=== PATIENT | female | born 1950 | race Caucasian/White ===

== ENCOUNTER 2024-07-24 05:18 | Observation (INO) | payer MEDICARE, SELFPAY ==
[2024-07-24] VITALS (10 sets, daily range): BP systolic 134–164; BP diastolic 56–104; PULSE 54–63; RESP 15–20; TEMP 36.4–36.9; O2SAT 91–96; BMI 33.8; BMI 35.4; BMI 36.1
--- NOTE | 2024-07-24 05:30 | CT_ITS ---
PROCEDURE INFORMATION: Exam: CTA Head With Contrast, Arteriography Exam date and time: 07/24/2024 5:55 AM Age: 73 years old Clinical indication: Dizziness and giddiness; Additional info: Dizziness, emesis TECHNIQUE: Imaging protocol: Computed tomographic angiography of the head with contrast. Exam focused on the arteries. 3D rendering (Not supervised by radiologist): MIP and/or 3D reconstructed images were created by the technologist. Radiation optimization: All CT scans at this facility use at least one of these dose optimization techniques: automated exposure control; mA and/or kV adjustment per patient size (includes targeted exams where dose is matched to clinical indication); or iterative reconstruction. Contrast material: ISOUVE 370; Contrast volume: 80 ml; Contrast route: INTRAVENOUS (IV); COMPARISON: CT HEAD/BRAIN WO CON 07/24/2024 5:42 AM FINDINGS: ANTERIOR CIRCULATION: Right internal carotid artery: Intracranial segment is patent with no significant stenosis. No aneurysm. Right middle cerebral artery: No occlusion or significant stenosis. No aneurysm. Right anterior cerebral artery: No occlusion or significant stenosis. No aneurysm. Left internal carotid artery: Intracranial segment is patent with no significant stenosis. No aneurysm. Left middle cerebral artery: No occlusion or significant stenosis. No aneurysm. Left anterior cerebral artery: No occlusion or significant stenosis. No aneurysm. POSTERIOR CIRCULATION: Right vertebral artery: No occlusion or significant stenosis. No aneurysm. Left vertebral artery: No occlusion or significant stenosis. No aneurysm. Basilar artery: No occlusion or significant stenosis. No aneurysm. Right posterior cerebral artery: Anatomic variant right persistent circulation with hypoplastic right posterior cerebral artery P1 segment and right posterior cerebral artery filling via the anterior circulation. No occlusion or significant stenosis. No aneurysm. Left posterior cerebral artery: No occlusion or significant stenosis. No aneurysm. Brain: Brain and intracranial findings as previously described. Cerebral ventricles: No acute findings. No hydrocephalus. Bones/joints: No acute osseous abnormality. No acute fracture. Soft tissues: No significant soft tissue abnormalities. IMPRESSION: No evidence of significant intracranial vascular disease or acute large vessel occlusion at this time.
--- NOTE | 2024-07-24 05:30 | CT_ITS ---
PROCEDURE INFORMATION: Exam: CTA Neck With Contrast Exam date and time: 07/24/2024 5:55 AM Age: 73 years old Clinical indication: Dizziness and giddiness; Additional info: Dizziness, emesis TECHNIQUE: Imaging protocol: Computed tomographic angiography of the neck with contrast. Exam focused on the cervical segments of the vasculature. 3D rendering (Not supervised by radiologist): MIP and/or 3D reconstructed images were created by the technologist. Radiation optimization: All CT scans at this facility use at least one of these dose optimization techniques: automated exposure control; mA and/or kV adjustment per patient size (includes targeted exams where dose is matched to clinical indication); or iterative reconstruction. Contrast material: ISOUVE 370; Contrast volume: 80 ml; Contrast route: INTRAVENOUS (IV); COMPARISON: CT HEAD/BRAIN WO CON 07/24/2024 5:42 AM FINDINGS: Right common carotid artery: Patent enhancing right common carotid artery. No significant stenosis. No dissection or occlusion. Right internal carotid artery: No acute abnormality. Extracranial segment is patent without stenosis with respect to the distal ICA lumen. No dissection or occlusion. Right external carotid artery: Patent enhancing right external carotid artery. No occlusion or significant stenosis. Left common carotid artery: Patent enhancing left common carotid artery. No significant stenosis. No dissection or occlusion. Left internal carotid artery: No acute abnormality. Extracranial segment is patent without stenosis with respect to the distal ICA lumen. No dissection or occlusion. Left external carotid artery: Patent enhancing left external carotid artery. No occlusion or significant stenosis. Right vertebral artery: Patent enhancing right vertebral artery. No significant stenosis. No dissection or occlusion. Left vertebral artery: Patent enhancing left vertebral artery. No significant stenosis. No dissection or occlusion. Aorta: Ectatic visualized ascending thoracic aorta and aortic arch. Two vessel aortic arch. Patent enhancing great vessels. Pulmonary arteries: Prominent pulmonary trunk and visualized central pulmonary arteries suggestive of pulmonary artery hypertension. Soft tissues: No significant soft tissue abnormalities. Bones/joints: No acute osseous abnormality. No acute fracture. IMPRESSION: 1. No evidence of significant carotid or vertebral arterial vascular disease at this time. 2. Prominent pulmonary trunk and visualized central pulmonary arteries suggestive of pulmonary artery hypertension. REFERENCES: NASCET CRITERIA. The degree of stenosis in the cervical segment of the internal carotid artery is based on NASCET criteria. Normal is no stenosis. Mild is less than 50% stenosis. Moderate is 50-69% stenosis. Severe is 70% to 99% stenosis. Total occlusion is no detectable patent lumen.
--- NOTE | 2024-07-24 05:30 | CT_ITS ---
PROCEDURE INFORMATION: Exam: CT Head Without Contrast Exam date and time: 07/24/2024 5:42 AM Age: 73 years old Clinical indication: Dizziness; Additional info: Dizziness, emesis TECHNIQUE: Imaging protocol: Computed tomography of the head without contrast. Radiation optimization: All CT scans at this facility use at least one of these dose optimization techniques: automated exposure control; mA and/or kV adjustment per patient size (includes targeted exams where dose is matched to clinical indication); or iterative reconstruction. COMPARISON: No relevant prior studies available. FINDINGS: Brain: Mild prominence of the sulci consistent with diffuse atrophy. Mild periventricular and subcortical white matter low-attenuation consistent with chronic small vessel ischemic changes. Approximately 1.2 x 1.0 x 1.5 cm posterolateral left parietal convexity calcified extra-axial lesion consistent with small meningioma. No significant edema, mass effect or midline shift. No acute hemorrhage. Cerebral ventricles: Ventricular prominence proportional to sulci. Paranasal sinuses: Mild bilateral maxillary sinus mucosal thickening. Mastoid air cells: Opacified bilateral mastoid air cells. Bones: No acute osseous abnormality. No acute fracture. Soft tissues: No significant soft tissue abnormalities. IMPRESSION: 1. Mild diffuse atrophy and chronic/remote ischemic changes without evidence of superimposed acute infarct, hemorrhage or significant mass-effect. 2. Approximately 1.2 x 1.0 x 1.5 cm posterolateral left parietal convexity calcified extra-axial lesion consistent with small meningioma. 3. Mild bilateral maxillary sinus disease and bilateral mastoid effusions versus mastoiditis.
--- NOTE | 2024-07-24 05:31 | XR_ITS ---
PROCEDURE INFORMATION: Exam: XR Chest Exam date and time: 07/24/2024 6:01 AM Age: 73 years old Clinical indication: Other: Dizziness TECHNIQUE: Imaging protocol: Radiologic exam of the chest. Views: Portable AP chest x-ray, 1 view. COMPARISON: CT ANGIO NECK 07/24/2024 5:55 AM FINDINGS: Lungs: Low lung volumes with mild bibasilar atelectasis. Pleural spaces: No significant costophrenic angle blunting. No pneumothorax. Heart/Mediastinum: Heart size appears prominent however may be exaggerated by the portable AP technique. Diaphragm: Right hemidiaphragm elevation. Bones/joints: No acute osseous abnormality. Soft tissues: Large body habitus. IMPRESSION: Low lung volumes with mild bibasilar atelectasis.
[2024-07-24 05:35] LABS: Basophils % 0.4 % (0.1-2.0); Eosinophils # 0.2 K/mm3 (0.0-0.4); Eosinophils % 2.7 % (0.1-12.0); Hematocrit 39.3 % (37.0-47.0); Hemoglobin 12.7 g/dL (12.2-16.2); Lymphocytes # 1.7 K/mm3 (0.7-4.5); Lymphocytes % 21.3 % (10-50); Mean Corpuscular HGB Conc 32.3 g/dL (31.8-35.4); Mean Corpuscular Hemoglobin 29.6 pg (27.0-31.2); Mean Corpuscular Volume 91.6 fl (81-99); Mean Platelet Volume 10.5 fl (7.4-10.4); Monocytes # 0.4 K/mm3 (0.1-1.0); Monocytes % 5.6 % (1.7-9.3); Neutrophils # 5.4 K/mm3 (1.8-7.8); Neutrophils % 69.6 % (37.0-80.0); Platelet Count 269 K/mm3 (142-424); Red Blood Count 4.29 M/mm3 (4.20-5.40); Red Cell Distribution Width 13.4 % (11.5-17.5); White Blood Count 7.8 K/mm3 (4.8-10.8)
[2024-07-24] MEDS: LORazepam 2MG/ML VIAL 1 MG IV (05:38)
[2024-07-24 05:39] LABS: Albumin Level 4.1 g/dl (3.5-5.0); Chloride 108 mmol/L (98-107); Potassium 3.6 mmoL/L (3.5-5.1); Sodium 138 mmol/L (136-145)
[2024-07-24] MEDS: MECLIZINE 25MG TABLET 25 MG PO ×2 (05:39→20:59)
--- NOTE | 2024-07-24 05:39 | ECG_ITS ---
APPROVED REPORT Exam: Resting ECG HR:53 bpm ECG Measurements Heart Rate 53 AXES UT 189 P 67 QRSd 105 QRS -11 QT 433 T 108 QTc 415 Conclusion SINUS BRADYCARDIA NONSPECIFIC ST & T-WAVE ABNORMALITY ABNORMAL ECG No STEMI Electronically signed by : LEONELA JHAVERI, 07/25/2024 03:45:45
[2024-07-24 05:42] LABS: Alanine Aminotransferase 27 U/L (12-78); Alkaline Phosphatase 62 U/L (38-126); Anion Gap 8.6 mEq/L (5-15); Aspartate Amino Transferase 29 U/L (14-36); Bilirubin,Total 0.5 mg/dl (0.2-1.3); Blood Urea Nitrogen 30 mg/dl (7-17); Calcium 9.4 mg/dl (8.4-10.2); Carbon Dioxide 25 mmol/L (22.0-30.0); Creatinine Clearance Estimated 59 mL/min (50-200); Estimated Glomerular Filt Rate 44 ml/min (>60); GFR (African American) 54 ML/MIN (>60); Glucose 192 mg/dl (74-100); Total Protein,Serum 6.7 g/dl (6.3-8.2)
[2024-07-24 05:44] LABS: INR 0.98 (0.9-1.1)
--- NOTE | 2024-07-24 05:54 | HMH.EDGENADL ---
Discharge Plan Disposition Patient Disposition: Admitted Condition: Fair Clinical Impressions Clinical Impression: Dizziness, Nausea & vomiting, Vertigo Discharge ED Provider: Kirt Lowe General Adult HPI <Kirt Lowe MD - Last Filed: 07/24/24 06:53> General Chief complaint: Dizziness Stated complaint: Vertigo Time Seen by Provider: 07/24/24 05:27 Mode of Arrival: EMS Source of Information: Patient and EMS Description of Symptoms (Recalled from ER Triage Doc. by RN): Patient reports dizziness x1 week. States it is worse tonight. States room is spinning. Worse when turning head to the right. History of Present Illness HPI narrative: 73-year-old female who reports a self diagnosis of previous vertigo presents to the ER with dizziness and room spinning. He states it has been going on for the last week but was worse tonight. She states the room feels like it is spinning. She is having difficulty sleeping because anytime she moves she feels extremely dizzy and nauseous. She has also had emesis. She reports to dizziness is worse when she turns her head to the right. She denies any cardiac history or history of stroke but states she is a diabetic on insulin. She reports no headache, numbness, tingling, weakness, chest pain, difficulty breathing, or other associated symptoms. No recent illness. She does not have any medications for vertigo and has never had it this bad before. She did not take any medications at home prior to arrival. Tonight her symptoms got bad enough that she called EMS. EMS reports they gave Zofran and route and that patient had blood glucose of 199, mild bradycardia with heart rate in the mid to upper 50s, reassuring blood pressures. Related Data Allergies Allergy/AdvReac Type Severity Reaction Status Date / Time No Known Allergies Allergy Verified 07/24/24 05:34 PFSH <Kirt Lowe MD - Last Filed: 07/24/24 06:53> [facility] Disclaimer: The information contained in this section may have been updated after the patient was seen, as this information can be updated by other users. Social History (Updated 07/24/24 @ 06:53 by Kirt Lowe MD) Smoking Status: Never smoker alcohol intake: never current occupational status: other Travel in the last 8 weeks: None Have you lived/traveled outside [place] in past 30 days?: No Contact w/someone who lives/traveled outside [place] past 30 days?: No Exposure to someone with infectious disease in past 14 days?: No Do you have a fever (greater than 100.4 F or 38 C)?: No Have you tested positive for COVID-19: No Exposed to someone with COVID-19 in past 14 days?: No Do you have a sore throat?: No Do you have a cough?: No Do you have any weakness?: No Do you have any diarrhea?: No Are you experiencing any unusual bleeding?: No Do you have any muscle aches/pain?: No Do you have any abdominal pain?: No Are you experiencing loss of taste or smell?: No <Kirt Lowe MD - Last Filed: 07/24/24 06:53> ROS Obtained: Yes Systems reviewed as appropriate & no additional complaints except as documented Per HPI Physical Exam <Kirt Lowe MD - Last Filed: 07/24/24 06:53> General General appearance: alert and in no apparent distress Head Head exam: atraumatic and normocephalic Eye Eye exam: Present PERRL and EOMI; Absent nystagmus ENT ENT exam: Present mucous membranes moist Neck Neck exam: Present normal inspection and full ROM; Absent tenderness Chest Chest inspection: Present symmetric chest wall rise Respiratory Respiratory exam: Present normal lung sounds bilaterally; Absent respiratory distress, wheezes or stridor Cardiovascular Cardiovascular exam: Present normal rhythm and bradycardia (Heart rate in the mid upper 50s) Abdominal Exam Abdominal exam: Present soft; Absent distention or tenderness Extremities Exam Extremities exam: Present full ROM; Absent edema, joint swelling or calf tenderness Neurological Exam Neurological exam: Present alert, oriented X3, CN II-XII intact and other (NIH 0; patient once had extremely still not wanting to move it for fear of symptoms); Absent motor sensory deficit Psychiatric Psychiatric exam: Present normal affect and normal mood Skin Skin exam: Present warm and dry Medical Decision Making <Kirt Lowe MD - Last Filed: 07/24/24 06:53> Medical Records Screening: Per USPSTF and CDC recommendations, given the prevalence of disease in our region, it is our hospital?s policy to screen for HIV and viral Hepatitis for all patients aged 18 and over and those with ongoing risk factors. Rivas Inquiry Pt receiving controlled substance: No Vital Signs: 07/24/24 05:19 07/24/24 05:30 07/24/24 06:09 Temperature 97.6 F Temperature Source Oral Pulse Rate 58 L 58 L Pulse Rate [Right Radial] 57 L Respiratory Rate 16 Blood Pressure 149/70 H 139/104 H Blood Pressure [Right Arm] 164/82 H Blood Pressure Mean [Right Arm] 109 Blood Pressure Source [Right Arm] Automatic Cuff Blood Pressure Position [Right Arm] Supine 02 Sat by Pulse Oximetry 91 L 93 L 96 Oxygen Delivery Method Room Air 07/24/24 07:00 07/24/24 07:31 Temperature Temperature Source Pulse Rate 58 L 60 Pulse Rate [Right Radial] Respiratory Rate Blood Pressure 134/72 142/80 H Blood Pressure [Right Arm] Blood Pressure Mean [Right Arm] Blood Pressure Source [Right Arm] Blood Pressure Position [Right Arm] 02 Sat by Pulse Oximetry 96 94 L Oxygen Delivery Method Room Air Room Air Lab Data Lab Results 07/24/24 05:21: WBC 7.8, RBC 4.29, Hgb 12.7, Hct 39.3, MCV 91.6, MCH 29.6, MCHC 32.3, RDW 13.4, Plt Count 269, MPV 10.5 H, Neut % (Auto) 69.6, Lymph % (Auto) 21.3, [place] % (Auto) 5.6, Eos % (Auto) 2.7, Baso % (Auto) 0.4, Neut # (Auto) 5.4, Lymph # (Auto) 1.7, [place] # (Auto) 0.4, Eos # (Auto) 0.2, Baso # (Auto) 0.0, PT 11.0, INR 0.98, Sodium 138, Potassium 3.6, Chloride 108 H, Carbon Dioxide 25, Anion Gap 8.6, BUN 30 H, Creatinine 1.20 H, Estimated Creat Clear 59, Estimated GFR 44 L, Est GFR ( Amer) 54 L, Glucose 192 H, Calcium 9.4, Total Bilirubin 0.5, AST 29, ALT 27, Alkaline Phosphatase 62, Troponin I < 0.01, Total Protein 6.7, Albumin 4.1, Globulin 2.6, Albumin/Globulin Ratio 1.6 07/24/24 05:31: VBG pH 7.30 L, VBG pCO2 46.1, VBG pO2 43.4 H, VBG HCO3 22.3 L, VBG Total CO2 23.7, VBG O2 Saturation 74.2 H, VBG Base Excess -4.0 L, VBG Lactic Acid 2.0 07/24/24 05:21 07/24/24 05:21 Orders (Tests/Meds): ED MEDICATIONS Generic Name Dose Route Start Last Admin Trade Name Freq PRN Reason Stop Dose Admin Sodium Chloride 10 ml 07/24/24 05:27 Sodium Chloride 0.9% 10ml Vial IV 08/23/24 05:26 NEEDED PRN to Dilute Lorazepam inj Sodium Chloride 10 ml 07/24/24 06:06 07/24/24 06:07 Sodium Chloride 0.9% 10ml Syr (Rad Only) IV 08/23/24 06:05 10 ml NEEDED PRN Administration Maintain IV Site Discontinued Medications Generic Name Dose Route Start Last Admin Trade Name Freq PRN Reason Stop Dose Admin Lactated Ringer's 1,000 mls @ 999 mls/hr 07/24/24 06:00 07/24/24 06:06 Lactated Ringer's 1000 Ml Bag IV 07/24/24 07:00 999 mls/hr .Q1H1M ONE Administration Iopamidol 80 ml 07/24/24 06:06 07/24/24 06:07 Iopamidol-370 (76%);100ml Bottle IV 07/24/24 06:07 80 ml ONCE ONE Administration Lorazepam 1 mg 07/24/24 05:27 07/24/24 05:38 Lorazepam 2mg/Ml Vial IV 07/24/24 05:28 1 mg ONCE ONE Administration Meclizine HCl 25 mg 07/24/24 05:27 07/24/24 05:39 Meclizine 25mg Tablet PO 07/24/24 05:28 25 mg ONCE ONE Administration Sodium Chloride 40 ml 07/24/24 06:06 07/24/24 06:07 0.9 % Sodium Chloride 50 Ml Vial IV 07/24/24 06:07 40 ml ONCE ONE Administration ORDERS Category Date Time Status CT angio head Stat Cat Scan 07/24/24 05:[address] angio neck Stat Cat Scan 07/24/24 05:[address] head/brain wo con Stat Cat Scan 07/24/24 05:30 Completed CXR --portable [XR chest portable] Stat Exams 07/24/24 05:31 Completed CBC w/Auto Diff [Complete Blood Count Auto Diff] Stat Lab 07/24/24 05:21 Completed CMP [Comprehensive Metabolic Panel] Stat Lab 07/24/24 05:21 Completed PT INR [Prothrombin Time INR] Stat Lab 07/24/24 05:21 Completed Trop I [Troponin I] Stat Lab 07/24/24 05:21 Completed Troponin I Q3H Lab 07/24/24 08:30 Ordered Troponin I Q3H Lab 07/24/24 11:30 Ordered Urinalysis and Microscopic Stat Lab 07/24/24 07:59 Ordered VBG [Venous Blood Gas] Stat RT 07/24/24 05:31 Completed ECG Request Stat Y 07/24/24 05:27 Ordered Medical Decision Narrative: In summary, this 73-year-old female with diabetes on insulin which may not be at goal therapy presents to the emergency department today with dizziness, vomiting. On initial evaluation patient is mildly bradycardic but otherwise hemodynamically stable, afebrile, GCS 15, no localizing neurologic deficits, NIH 0, patient has dizziness with movement and nausea, though she reports her nausea is improved since receiving Zofran from EMS. Normal [id number] and [id number], overall very reassuring neurologic exam with no nystagmus. Differential diagnosis includes but is not limited to BPPV, posterior stroke, intracranial mass or lesion, also considered electrolyte abnormality, dehydration, arrhythmia, among others. Based on these concerns, I ordered serum labs, cardiac workup, CT imaging. Patient was not made a stroke alert because her symptoms have been ongoing for the last week and are just an exacerbation tonight. ECG personally interpreted demonstrates sinus bradycardia, rate 53, normal axis, normal ME and QTc, no STEMI. Patient received meclizine, low-dose Ativan for treatment. Labs personally reviewed demonstrate nonactionable CBC no leukocytosis or anemia, normal platelets, PT/INR normal, CMP with evidence of kidney dysfunction, unclear if this is new or old, patient has been started on IV fluids. Initial troponin undetectably low less than 0.01 reassuring in the setting of reassuring ECG and no chest pain or shortness of breath. CT head personally interpreted does not demonstrate intracranial bleed, there is what appears to be a calcified meningioma in the left parietal region. Radiology read pending. CT angiography is pending. Patient reports symptoms are not yet significantly improved, but she is able to move her head more without as much dizziness. CT angiography does not demonstrate acute vascular lesion. See radiology read for full interpretation. Patient handed off to Dr. Gabriel in stable condition for further management and disposition. Anticipate patient may have to be admitted for continued evaluation and management of dizziness. <Dina Gabriel, DO - Last Filed: 07/24/24 08:08> Vital Signs: 07/24/24 05:19 07/24/24 05:30 07/24/24 06:09 Temperature 97.6 F Temperature Source Oral Pulse Rate 58 L 58 L Pulse Rate [Right Radial] 57 L Respiratory Rate 16 Blood Pressure 149/70 H 139/104 H Blood Pressure [Right Arm] 164/82 H Blood Pressure Mean [Right Arm] 109 Blood Pressure Source [Right Arm] Automatic Cuff Blood Pressure Position [Right Arm] Supine 02 Sat by Pulse Oximetry 91 L 93 L 96 Oxygen Delivery Method Room Air 07/24/24 07:00 07/24/24 07:31 Temperature Temperature Source Pulse Rate 58 L 60 Pulse Rate [Right Radial] Respiratory Rate Blood Pressure 134/72 142/80 H Blood Pressure [Right Arm] Blood Pressure Mean [Right Arm] Blood Pressure Source [Right Arm] Blood Pressure Position [Right Arm] 02 Sat by Pulse Oximetry 96 94 L Oxygen Delivery Method Room Air Room Air Lab Data Lab Results 07/24/24 05:21: WBC 7.8, RBC 4.29, Hgb 12.7, Hct 39.3, MCV 91.6, MCH 29.6, MCHC 32.3, RDW 13.4, Plt Count 269, MPV 10.5 H, Neut % (Auto) 69.6, Lymph % (Auto) 21.3, [place] % (Auto) 5.6, Eos % (Auto) 2.7, Baso % (Auto) 0.4, Neut # (Auto) 5.4, Lymph # (Auto) 1.7, [place] # (Auto) 0.4, Eos # (Auto) 0.2, Baso # (Auto) 0.0, PT 11.0, INR 0.98, Sodium 138, Potassium 3.6, Chloride 108 H, Carbon Dioxide 25, Anion Gap 8.6, BUN 30 H, Creatinine 1.20 H, Estimated Creat Clear 59, Estimated GFR 44 L, Est GFR ( Amer) 54 L, Glucose 192 H, Calcium 9.4, Total Bilirubin 0.5, AST 29, ALT 27, Alkaline Phosphatase 62, Troponin I < 0.01, Total Protein 6.7, Albumin 4.1, Globulin 2.6, Albumin/Globulin Ratio 1.6 07/24/24 05:31: VBG pH 7.30 L, VBG pCO2 46.1, VBG pO2 43.4 H, VBG HCO3 22.3 L, VBG Total CO2 23.7, VBG O2 Saturation 74.2 H, VBG Base Excess -4.0 L, VBG Lactic Acid 2.0 Orders (Tests/Meds): ED MEDICATIONS Generic Name Dose Route Start Last Admin Trade Name Freq PRN Reason Stop Dose Admin Sodium Chloride 10 ml 07/24/24 05:27 Sodium Chloride 0.9% 10ml Vial IV 08/23/24 05:26 NEEDED PRN to Dilute Lorazepam inj Sodium Chloride 10 ml 07/24/24 06:06 07/24/24 06:07 Sodium Chloride 0.9% 10ml Syr (Rad Only) IV 08/23/24 06:05 10 ml NEEDED PRN Administration Maintain IV Site Discontinued Medications Generic Name Dose Route Start Last Admin Trade Name Freq PRN Reason Stop Dose Admin Lactated Ringer's 1,000 mls @ 999 mls/hr 07/24/24 06:00 07/24/24 06:06 Lactated Ringer's 1000 Ml Bag IV 07/24/24 07:00 999 mls/hr .Q1H1M ONE Administration Iopamidol 80 ml 07/24/24 06:06 07/24/24 06:07 Iopamidol-370 (76%);100ml Bottle IV 07/24/24 06:07 80 ml ONCE ONE Administration Lorazepam 1 mg 07/24/24 05:27 07/24/24 05:38 Lorazepam 2mg/Ml Vial IV 07/24/24 05:28 1 mg ONCE ONE Administration Meclizine HCl 25 mg 07/24/24 05:27 07/24/24 05:39 Meclizine 25mg Tablet PO 07/24/24 05:28 25 mg ONCE ONE Administration Sodium Chloride 40 ml 07/24/24 06:06 07/24/24 06:07 0.9 % Sodium Chloride 50 Ml Vial IV 07/24/24 06:07 40 ml ONCE ONE Administration ORDERS Category Date Time Status CT angio head Stat Cat Scan 07/24/24 05:[address] angio neck Stat Cat Scan 07/24/24 05:[address] head/brain wo con Stat Cat Scan 07/24/24 05:30 Completed CXR --portable [XR chest portable] Stat Exams 07/24/24 05:31 Completed CBC w/Auto Diff [Complete Blood Count Auto Diff] Stat Lab 07/24/24 05:21 Completed CMP [Comprehensive Metabolic Panel] Stat Lab 07/24/24 05:21 Completed PT INR [Prothrombin Time INR] Stat Lab 07/24/24 05:21 Completed Trop I [Troponin I] Stat Lab 07/24/24 05:21 Completed Troponin I Q3H Lab 07/24/24 08:30 Ordered Troponin I Q3H Lab 07/24/24 11:30 Ordered Urinalysis and Microscopic Stat Lab 07/24/24 07:59 Ordered VBG [Venous Blood Gas] Stat RT 07/24/24 05:31 Completed ECG Request Stat Y 07/24/24 05:27 Ordered Medical Decision Narrative: In summary, this 73-year-old female with diabetes on insulin which may not be at goal therapy presents to the emergency department today with dizziness, vomiting. On initial evaluation patient is mildly bradycardic but otherwise hemodynamically stable, afebrile, GCS 15, no localizing neurologic deficits, NIH 0, patient has dizziness with movement and nausea, though she reports her nausea is improved since receiving Zofran from EMS. Normal [id number] and yiuy-er-zmjy, overall very reassuring neurologic exam with no nystagmus. Differential diagnosis includes but is not limited to BPPV, posterior stroke, intracranial mass or lesion, also considered electrolyte abnormality, dehydration, arrhythmia, among others. Based on these concerns, I ordered serum labs, cardiac workup, CT imaging. Patient was not made a stroke alert because her symptoms have been ongoing for the last week and are just an exacerbation tonight. ECG personally interpreted demonstrates sinus bradycardia, rate 53, normal axis, normal ME and QTc, no STEMI. Patient received meclizine, low-dose Ativan for treatment. Labs personally reviewed demonstrate nonactionable CBC no leukocytosis or anemia, normal platelets, PT/INR normal, CMP with evidence of kidney dysfunction, unclear if this is new or old, patient has been started on IV fluids. Initial troponin undetectably low less than 0.01 reassuring in the setting of reassuring ECG and no chest pain or shortness of breath. CT head personally interpreted does not demonstrate intracranial bleed, there is what appears to be a calcified meningioma in the left parietal region. Radiology read pending. CT angiography is pending. Patient reports symptoms are not yet significantly improved, but she is able to move her head more without as much dizziness. CT angiography does not demonstrate acute vascular lesion. See radiology read for full interpretation. Patient handed off to Dr. Gabriel in stable condition for further management and disposition. Anticipate patient may have to be admitted for continued evaluation and management of dizziness. Harvey DO: I assumed care of the patient at 7 AM at time of departure previous provider. On my assessment, the patient is lying in bed, still complaining of severe vertigo. It is present at rest without any sort of movement, and she still complains of severe nausea anytime we try to get her up and move her. She is not able to ambulate given this. I independently interpreted CT scans and noted no obvious large intracranial hemorrhage or space-occupying lesion. Labs are reassuring without clinically significant derangements. She has mild metabolic acidosis, and creatinine and BUN are mildly elevated without me knowing her priors as I do not have prior labs for comparison. Labs are otherwise reassuring. Troponin negative, EKG obtained is reassuring. Ultimately, given intractable vertigo I feel the patient would benefit from admission for further workup and management of possible vestibular neuritis versus posterior stroke. She is well outside of any window for thrombolytics or thrombectomy, and also has no large vessel occlusion. I had an interactive discussion with the hospitalist who admitted the patient in stable condition for further evaluation and management. Critical Care <Kirt Lowe MD - Last Filed: 07/24/24 06:53> Critical Care Time Critical Care Time: No
[2024-07-24 05:56] LABS: Troponin I < 0.01 ng/ml (0.00-0.034)
[2024-07-24] MEDS: LACTATED RINGERS 1000ML 1,000 ML 999 ML IV (06:06)
[2024-07-24 06:07] LABS: Albumin/Globulin Ratio 1.6 (1.1-1.8); Globulin 2.6 g/dL (1.3-3.2)
[2024-07-24] MEDS: SODIUM CHLORIDE 0.9% 10ML SYR (RAD ONLY) 10 ML IV ×2 (06:07→09:40)
[2024-07-24] MEDS: 0.9 % SODIUM CHLORIDE 50 ML VIAL 40 ML IV (06:07)
[2024-07-24] MEDS: IOPAMIDOL-370 (76%);100ML BOTTLE 80 ML IV (06:07)
--- NOTE | 2024-07-24 06:21 | PC.NURSE ---
Put pt on 2L NC
[2024-07-24 06:36] LABS: VBG HCO3 22.3 mmol/L (23-30); VBG Oxygen Saturation 74.2 % (50-70); VBG PCO2 46.1 mmol/L (35-51); VBG PO2 43.4 mmol/L (28-40); VBG Total CO2 23.7 mmol/L (23-27)
--- NOTE | 2024-07-24 07:05 | PC.NURSE ---
I rounded on the pt. She is resting with her eyes closed at this time. call parry in reach.
--- NOTE | 2024-07-24 07:30 | PC.NURSE ---
I rounded on the pt. I woke her up, took her off her oxygen as she is RA at baseline, and sat her up in bed. I told her i would be back in a few minutes to ambulate with her. no needs voiced. no new complaints. call parry in reach.
--- NOTE | 2024-07-24 07:57 | PC.NURSE ---
changed pt bed sheet and placed in gown with mesh panties and pad placing new purwick
--- NOTE | 2024-07-24 08:04 | PC.NURSE ---
pt admitted to room 218, all staff notified
--- NOTE | 2024-07-24 08:12 | MR_ITS ---
FINAL REPORT TECHNIQUE: Multiplanar and multisequence imaging of the brain was obtained before and after contrast injection. CLINICAL HISTORY: VERTIGO , VESTIBULAR NEURITIS COMPARISON: None FINDINGS: Mild atrophy is noted with associated ex vacuo dilatation of the ventricles. There is no mass effect or midline shift. Small foci of periventricular and subcortical white matter are nonspecific. No hydrocephalus. The cerebellum and brainstem have an unremarkable appearance. There is an extra-axial mass adjacent to the left parietal lobe, measuring 10 mm in size. There are no areas of restricted diffusion on diffusion weighted images to suggest acute infarct. There is fluid in the mastoid air cells bilaterally. There is mild mucoperiosteal thickening in the bilateral maxillary sinuses. Postcontrast enhanced images reveal homogeneous enhancement of the extra-axial left parietal region mass, consistent with a meningioma. IMPRESSION: Extra-axial mass adjacent to the left parietal lobe, with homogeneous enhancement after contrast administration, measuring 10 mm in size. The appearance is consistent with a meningioma. There is no evidence of restricted diffusion to suggest an acute infarct. Bilateral mastoiditis. Periventricular and subcortical T2 abnormality, likely related to changes of chronic small vessel ischemia. Reviewed, Interpreted and Dictated by Kim Kern MD Transcribed by Marina Landry Authenticated and [facility]
--- NOTE | 2024-07-24 08:15 | PC.NURSE ---
Attempted to call report to Med/Surg nurse, she will call back shortly.
--- NOTE | 2024-07-24 08:38 | PC.NURSE ---
Pt left for MRI on plastic stretcher. She was prepped for MRI and all leads/metal removed, pts family had already previously removed jewelry, and placed in a gown prior to going to MRI.
[2024-07-24] MEDS: GADOTERIDOL INJ 20ML SYRINGE 20 ML IV (09:39)
--- NOTE | 2024-07-24 09:47 | PC.NURSE ---
arrived to floor by stretcher from ed/mri
[2024-07-24] MEDS: SCOPOLAMINE 1.5MG/72HRS PATCH 1 EACH TD (10:31)
[2024-07-24 10:39] LABS: Troponin I < 0.01 ng/ml (0.00-0.034)
[2024-07-24] MEDS: PIPERCILLIN/TAZO 3.375 GM in 0.9 % SODIUM CHLORIDE 50 ML IV (12:03)
--- NOTE | 2024-07-24 12:11 | EXP.HP ---
History of Present Illness *Admission Date: 07/24/24 *Reason for visit:: dizzy, nauseous *History of present illness: Ms. Zaragoza is a 73-year-old female who has had worsening dizziness over the past week. States it got worse last night. Feels like the room is spinning, even when she is laying still. Worse when turning head to the right. She has previously had episode of vertigo the last 1 to 2 days and then resolved. This episode has persisted however and is not getting better. She reports nausea with with her dizziness. Denies any known trauma, falls, loss of consciousness or change in mentation. Denies any headache, numbness, tingling or weakness. No chest pain or shortness of breath. No recent illness that she knows of. On blood pressure medication, diuretics, and diabetes meds. Symptoms were bad enough that she called EMS who brought her to the ER for evaluation. On workup, blood sugar is mildly elevated. Appears slightly dry with an elevated BUN to creatinine ratio. CT of her head does not show any acute strokes. Attempts were made to calm her vertigo with meclizine and benzodiazepines. Patient remained dizzy and nauseous. Unable to ambulate independently without feeling like she was going to fall over. Medicine was consulted for admission and further management. On evaluation after arriving to the floor, patient is comfortable lying in bed. She does not want to move due to dizziness. No active nausea or vomiting. Hemodynamically stable. On room air. Afebrile. Alert and oriented x 4. No nystagmus on exam. [facility] Disclaimer: The information contained in this section may have been updated after the patient was seen, as this information can be updated by other users. Medical History Diabetes HTN (hypertension) Kidney failure Surgical History Hx of exploratory laparotomy Family History Other Diabetes Stroke Vertigo Social History Smoking Status: Never smoker alcohol intake: never current occupational status: other Travel in the last 8 weeks: None Have you lived/traveled outside [place] in past 30 days?: No Contact w/someone who lives/traveled outside US past 30 days?: No Exposure to someone with infectious disease in past 14 days?: No Do you have a fever (greater than 100.4 F or 38 C)?: No Have you tested positive for COVID-19: No Exposed to someone with COVID-19 in past 14 days?: No Do you have a sore throat?: No Do you have a cough?: No Do you have any weakness?: No Are you experiencing any nausea/vomitting?: No Do you have any diarrhea?: No Are you experiencing any unusual bleeding?: No Do you have any muscle aches/pain?: No Do you have any abdominal pain?: No Are you experiencing loss of taste or smell?: No Other Medical History Have you received the Flu Vaccine for this season: No Have you received the Pneumonia Vaccine: No Review of Systems Review of Systems Review of systems (narrative): 14 point review of systems performed, pertinent positives and negatives as per HPI Meds Home Medications and Allergies Home Medications ?Medication ?Instructions ?Recorded ?Confirmed ?Type amlodipine 5 mg tablet 5 mg PO HS 07/24/24 07/24/24 History aspirin 81 mg chewable tablet 81 mg PO HS 07/24/24 07/24/24 History atorvastatin 10 mg tablet 10 mg PO HS 07/24/24 07/24/24 History biotin 10,000 mcg capsule 10,000 mcg PO HS 07/24/24 07/24/24 History cholecalciferol (vitamin D3) 25 1,000 unit PO HS 07/24/24 07/24/24 History mcg (1,000 unit) tablet (Vitamin D3) eplerenone 25 mg tablet 25 mg PO DAILY 07/24/24 07/24/24 History fenofibrate nanocrystallized 145 145 mg PO HS 07/24/24 07/24/24 History mg tablet insulin glargine U-300 conc 300 50 unit SQ HS 07/24/24 07/24/24 History unit/mL (3 mL) subcutaneous pen (Toujeo Max U-300 SoloStar) lisinopril 40 mg tablet 40 mg PO HS 07/24/24 07/24/24 History semaglutide 1 mg/dose (2 mg/1.5 1 mg SQ WEEKLY 07/24/24 07/24/24 History mL) subcutaneous pen injector New Prescriptions to Start Prescriptions: Allergies Allergy/AdvReac Type Severity Reaction Status Date / Time Penicillins Allergy Rash Verified 07/24/24 13:12 Exam Data for Last 24 hours Vital signs and Labs for Last 24 Hours: Temp Pulse Resp BP Pulse Ox O2 Del Method 97.6 F 58 L 20 134/76 95 Room Air 07/24/24 10:12 07/24/24 10:12 07/24/24 10:12 07/24/24 10:12 07/24/24 10:12 07/24/24 11:00 Laboratory Results - last 24 hr 07/24/24 05:21: WBC 7.8, RBC 4.29, Hgb 12.7, Hct 39.3, MCV 91.6, MCH 29.6, MCHC 32.3, RDW 13.4, Plt Count 269, MPV 10.5 H, Neut % (Auto) 69.6, Lymph % (Auto) 21.3, [place] % (Auto) 5.6, Eos % (Auto) 2.7, Baso % (Auto) 0.4, Neut # (Auto) 5.4, Lymph # (Auto) 1.7, [place] # (Auto) 0.4, Eos # (Auto) 0.2, Baso # (Auto) 0.0, PT 11.0, INR 0.98, Sodium 138, Potassium 3.6, Chloride 108 H, Carbon Dioxide 25, Anion Gap 8.6, BUN 30 H, Creatinine 1.20 H, Estimated Creat Clear 59, Estimated GFR 44 L, Est GFR ( Amer) 54 L, Glucose 192 H, Calcium 9.4, Total Bilirubin 0.5, AST 29, ALT 27, Alkaline Phosphatase 62, Troponin I < 0.01, Total Protein 6.7, Albumin 4.1, Globulin 2.6, Albumin/Globulin Ratio 1.6 07/24/24 05:31: VBG pH 7.30 L, VBG pCO2 46.1, VBG pO2 43.4 H, VBG HCO3 22.3 L, VBG Total CO2 23.7, VBG O2 Saturation 74.2 H, VBG Base Excess -4.0 L, VBG Lactic Acid 2.0 07/24/24 10:00: Troponin I < 0.01 I & O for Last 24 hours: Intake & Output 07/21/24 07/22/24 07/23/24 03/24/25 23:59 23:59 23:59 23:59 Intake Total 1000 / 1000 Balance 1000 / 1000 Weight 92.646 kg Constitutional Constitutional: no acute distress, obese and cooperative *Routine HEENT Exam Head: Present normocephalic Eye: Present EOMI and PERRL ENT: Present mucous membranes moist Comments: No tender mastoids, does have some mild tender anterior chain lymphadenopathy *Routine Neck Exam Neck: Present supple; Absent lymphadenopathy *Routine Respiratory Exam Respiratory: Present CTA bilaterally; Absent rhonchi, wheezes or crackles *Routine Cardiovascular Exam Cardiovascular: Present RRR *Routine Abdominal Exam Abdominal: Present soft and normoactive bowel sounds; Absent tenderness *Routine Rectal Exam Rectal:: deferred *Routine Genitalia Exam Genitalia:: deferred *Routine Extremities Exam Extremities: Absent cyanosis, clubbing or edema *Routine Skin Exam Skin: Present intact and warm; Absent rash *Routine Neurological Exam Neurological: Present alert, oriented X3, CN II-XII intact and moving all extremities; Absent altered mental status Comments: No significant lateral nystagmus with eye movement Assessment and Plan *Assessment and plan (1) Vertigo: Status: Acute Category: Medical Code(s): R42 - Dizziness and giddiness (2) Unspecified mastoiditis, bilateral: Status: Acute Category: Medical Code(s): H70.93 - Unspecified mastoiditis, bilateral (3) Meningioma: Status: Acute Category: Medical Code(s): D32.9 - Benign neoplasm of meninges, unspecified (4) Nausea & vomiting: Status: Acute Category: Medical Code(s): R11.2 - Nausea with vomiting, unspecified (5) HTN (hypertension): Status: Chronic Category: Medical Code(s): I10 - Essential (primary) hypertension (6) Diabetes: Status: Chronic Category: Medical Code(s): E11.9 - Type 2 diabetes mellitus without complications (7) Obesity (BMI 30.0-34.9): Status: Chronic Category: Medical Code(s): E66.811 - Obesity, class 1 Plan 73-year-old female who presents with dizziness. Concern for vertigo that does not respond to treatment in the ED. Unable to discharge home. Discussed case with ER physician, request admission for further workup including MRI and management of vertigo. I agreed to admit for further treatment and monitoring. MRI ordered at time of admission. Shows meningioma and mastoiditis but no vestibular neuritis or acute stroke. Will have therapy evaluate. Monitor overnight. Problems addressed as follows: Vertigo Mastoiditis Hypertension Diabetes - Review of labs show sodium 138, potassium 3.6, chloride 108. Kidney function slightly abnormal with BUN 30, creatinine 1.2, prerenal ratio concerning for mildly dehydrated. Received a liter in the ER. - Glucose elevated at 192. A1c pending. Initiate on sliding scale insulin with fingersticks ACHS. -Repeat CBC, CMP, magnesium ordered for the morning - Troponin nonactionable at less than 0.01. Urinalysis bland with no signs of infection. No signs of anemia. Hemoglobin 12.7. -Per my review of CT, has chronic periventricular changes but no acute stroke. MRI obtained showing meningioma and mastoiditis per my review with opacification of mastoid air cells. -Will continue meclizine 25 mg as needed every 8 hours IV. Initiate scopolamine patch -Initiate antibiotics for mastoiditis. Recommend empiric course of 1 week. Initiated on ceftriaxone. -PT and OT consulted to evaluate -Incidental finding of meningioma in left parietal region. Would benefit from monitoring as an outpatient, no acute intervention recommended. Patient informed of finding Holding amlodipine and lisinopril due to normotensive state and dizziness. Will resume eplerenone 25 mg daily. full code holding anticoagulation diabetic diet
[2024-07-24 12:22] LABS: Microscopic, Urine URINE MICROSCOPIC (MICROSCOPIC)
[2024-07-24 12:35] LABS: Appearance,Urine CLEAR (Clear); Bilirubin,Urine Negative (Negative); Blood, Urine Negative (Negative); Color,Urine YELLOW (Yellow); Glucose,Urine (UA) 100 (Negative); Ketones,Urine Negative (Negative); Leukocyte Esterase,Urine Negative (Negative); Nitrate,Urine Negative (Negative); Protein,Urine Negative (Negative); Specific Gravity, Urine 1.015 (1.005-1.030); Urobilinogen,Urine 0.2 EU/dl (0.2)
[2024-07-24 13:07] LABS: Bacteria,Urine Trace /lpf; Squamous Epithelial Cell,Urine Occasional #/hpf (0-5)
--- NOTE | 2024-07-24 13:46 | HMH.PTEV ---
Physical Therapy Evaluation Rehab PT IP Evaluation Start: 07/24/24 08:02 Freq: ONCE Status: Active Protocol: Document 07/24/24 13:41 PHORNE (Rec: 07/24/24 13:46 PHORNE [id number]) Subjective/History History History 73-year-old female who reports a self diagnosis of previous vertigo presents to the ER with dizziness and room spinning. He states it has been going on for the last week but was worse tonight. She states the room feels like it is spinning. She is having difficulty sleeping because anytime she moves she feels extremely dizzy and nauseous. She has also had emesis. She reports to dizziness is worse when she turns her head to the right. She denies any cardiac history or history of stroke but states she is a diabetic on insulin. She reports no headache, numbness, tingling, weakness, chest pain, difficulty breathing, or other associated symptoms. She reports she recently got over the flu within the past 2 weeks, the worst I ever had it. She reports she lives with her daughter, [address] the home, and she is generally independent with all mobility without AD at baseline. Subjective Subjective Pt presents awake, supine in bed, agrees to mobility assessment. [facility] How much help from another person do you currently need... Turning from your back to your side None while in a flat bed without using bedrails? Moving from lying on back to sitting on A little the side of a flat bed without using bedrails? Moving to and from a bed to a chair ( A little including a wheelchair)? Standing up from a chair using your arms A little ? (e.g., wheelchair, bedside chair) Walking in hospital room? A little Climbing 3-5 steps with a railing? A little Mobility Score 19 Mobility Level [facility] Mobility Calculator Mobility 6 Walk 10 steps or more Rehab PT IP Eval Objective Appearance Patient Behavior Appropriate Patient Orientation Person,Place,Time Difficulty following instructions none Speech Pattern Clear Ambulation Patient Able to Ambulate Yes Ambulation Observation IP General Gait Pattern Observation Shuffling Step Ambulation Distance (feet) 10 Ambulation Assistive Device None Ambulation Ability Minimal x 2 (25% assist) Balance Ability to Arise Able, uses arms to help Sitting Balance Steady, safe Standing Balance Unsteady Dynamic Sitting Balance Ability Good Dynamic Standing Balance Ability Poor Transfers Bed Transfer Ability Independent Chair Transfer Ability Minimal x 1 (25% assist) Sit to Stand Bed Transfer Ability Minimal x 1 (25% assist) Sit to Stand Chair Transfer Ability Minimal x 1 (25% assist) Rehab PT IP prob,goals,plan Problems Date of Evaluation: 07/24/24 PT IP Problems Transfers,Gait,Balance Rehab Potential Rehab Potential Good Plan PT Intervention Plan Transfers,Gait,Balance, Therapeutic Exercise PT Plan Frequency Daily Duration LOS Discharge Goals Sit to Stand Chair Transfer Ability Contact Guard/Hand Hold Ambulation Distance (feet) 30 Discharge Plan PT Discharge Plan Pt appears to be appropriate to return home with family assist once medically stable depending on amount of assistance she has available as she may need 24 hr assist short term. Skilled acute therapy services are indicated to improve balance and ambulation in order to return to [facility]. Eval Complexity Eval Charge Codes 50935 - High Complexity PHYSICIAN CERTIFICATION: I certify the specified therapy services for Justine Zaragoza are required, authorized, and reviewed every 30 days.
--- NOTE | 2024-07-24 15:21 | HMH.OTEV ---
OT Inpatient Evaluation Rehab OT IP Evaluation Start: 07/24/24 08:02 Freq: ONCE Status: Active Protocol: [facility]24 15[facility] (Rec: 07/24/24 15:21 [facility] [id number]) Rehab OT IP Assessment Subjective History 73-year-old female who reports a self diagnosis of previous vertigo presents to the ER with dizziness and room spinning. He states it has been going on for the last week but was worse tonight. She states the room feels like it is spinning. She is having difficulty sleeping because anytime she moves she feels extremely dizzy and nauseous. She has also had emesis. She reports to dizziness is worse when she turns her head to the right. She denies any cardiac history or history of stroke but states she is a diabetic on insulin. She reports no headache, numbness, tingling, weakness, chest pain, difficulty breathing, or other associated symptoms. She reports she recently got over the flu within the past 2 weeks, the worst I ever had it. She reports she lives with her daughter, 1 [address] the home, and she is generally independent with all functional transfers without AD at baseline. She also claims to be independent with all ADLs and IADLs. She still drives and was working fulltime up until 2 weeks ago. Subjective Pt is agreeable to engage in therapy evaluation. Pt reports turning her head to the right makes her dizziness worse. Objective Patient Orientation Person,Place,Birthday Bed Mobility bed mobility-scooting,bed mobility - supine/sit Assist Level Minimal x 1 (25% assist) Transfer Training Sit/Stand Transfer Assist Level Minimal x 2 (25% assist) Rehab OT IP prob,goals,plan Problems Date of Evaluation: 07/24/24 OT IP Problems Bed Mobility,Transfers,Balance ,Self care,Safety Rehab Potential Rehab Potential Good Equipment Needs Assistive Devices Rolling / Wheeled Walker Plan OT intervention Plan Bed Mobility,Transfers,Balance ,Self care,Safety,Therapeutic Exercise OT Plan Frequency Daily Duration LOS Discharge Goals Bed Mobility Ability Standby Assistance Sit to Stand Chair Transfer Ability Minimal x 1 (25% assist) Chair Transfer Technique Sit to/from Ambulatory Chair Transfer Assistive Devices Rolling Walker Feeding Ability Assist with Tray Set Up Lower Body Dressing Ability Minimal Assistance Upper Body Dressing Ability Contact Guard Bathing Ability Minimal Assistance Performing Toilet Hygiene Ability Minimal Assistance Overall Commode/Toilet Transfer Ability Contact Guard,Minimal Assistance Commode/Toilet Transfer Technique Sit to/from Ambulatory Commode/Toilet Transfer Assistive Grab Bars Devices Oral Care Assist Standby Assistance Decrease in Endurance No Discharge Plan OT Discharge Plan Pt appears to be appropriate to return home with family assist once medically stable depending on amount of assistance she has available as she may need 24 hr assist short term. Skilled acute therapy services are indicated to improve functional transfers and ADL independence in order to return to [facility]. Eval Complexity Eval Charge Codes 80198 - Moderate Complexity PHYSICIAN CERTIFICATION: I certify the specified therapy services for Justine Zaragoza are required, authorized, and reviewed every 30 days.
[2024-07-24 17:22] LABS: POC Glucose,Bedside 100 (70-110)
[2024-07-24] MEDS: CEFTRIAXONE 1 GM 1 GM in 0.9 % SODIUM CHLORIDE 50 ML IV (17:57)
--- NOTE | 2024-07-24 18:40 | PC.NURSE ---
PT IS RESTING IN BED. ALERT AND ORIENTED X4. EATING AND DRINKING WELL. PT CONTINUES TO COMPLAIN OF DIZZINESS WHILE SITTING UP AND WHILE AMBULATING TO THE BATHROOM. LUNG SOUNDS CLEAR. ABDOMEN SOFT/NON TENDER WITH ACTIVE BOWEL SOUNDS. VSS. WILL CONTINUE TO MONITOR.
--- NOTE | 2024-07-24 20:12 | EXP.EVENT.NO ---
Per nursing there is no glargine insulin in the hospital we will substitute Lantus
[2024-07-24 20:39] LABS: POC Glucose,Bedside 241 (70-110)
[2024-07-25] VITALS: BP 125/65; PULSE 55; RESP 17; TEMP 36.9; O2SAT 95
[2024-07-25 04:00] VITALS: BP 127/68; PULSE 56; RESP 18; TEMP 36.7; O2SAT 91; BMI 36.3
[2024-07-25 05:22] LABS: POC Glucose,Bedside 108 (70-110)
[2024-07-25 05:42] LABS: Basophils % 0.5 % (0.1-2.0); Eosinophils # 0.2 K/mm3 (0.0-0.4); Eosinophils % 3.2 % (0.1-12.0); Hematocrit 37.2 % (37.0-47.0); Hemoglobin 11.9 g/dL (12.2-16.2); Lymphocytes # 1.7 K/mm3 (0.7-4.5); Lymphocytes % 30.5 % (10-50); Mean Corpuscular Hemoglobin 30.4 pg (27.0-31.2); Mean Corpuscular Volume 95.1 fl (81-99); Mean Platelet Volume 10.5 fl (7.4-10.4); Monocytes # 0.4 K/mm3 (0.1-1.0); Neutrophils # 3.3 K/mm3 (1.8-7.8); Neutrophils % 58.4 % (37.0-80.0); Platelet Count 264 K/mm3 (142-424); Red Blood Count 3.91 M/mm3 (4.20-5.40); White Blood Count 5.7 K/mm3 (4.8-10.8)
[2024-07-25 05:52] LABS: Alanine Aminotransferase 20 U/L (12-78); Albumin Level 3.6 g/dl (3.5-5.0); Albumin/Globulin Ratio 1.5 (1.1-1.8); Alkaline Phosphatase 35 U/L (38-126); Anion Gap 5.2 mEq/L (5-15); Aspartate Amino Transferase 26 U/L (14-36); Bilirubin,Total 0.4 mg/dl (0.2-1.3); Blood Urea Nitrogen 28 mg/dl (7-17); Calcium 9.3 mg/dl (8.4-10.2); Carbon Dioxide 31 mmol/L (22.0-30.0); Chloride 107 mmol/L (98-107); Creatinine Clearance Estimated 50 mL/min (50-200); Estimated Glomerular Filt Rate 34 ml/min (>60); GFR (African American) 41 ML/MIN (>60); Globulin 2.4 g/dL (1.3-3.2); Glucose 108 mg/dl (74-100); Magnesium 2.4 mg/dl (1.6-2.3); Potassium 4.2 mmoL/L (3.5-5.1); Sodium 139 mmol/L (136-145)
[2024-07-25 08:00] VITALS: BP 117/70; PULSE 56; RESP 18; TEMP 36.6; O2SAT 91
[2024-07-25 08:59] LABS: Free T4 (Free Thyroxine) 0.91 ng/dl (0.78-2.19)
[2024-07-25 09:13] LABS: Thyroid Stimulating Hormone 0.02 uIU/mL (0.465-4.68)
[2024-07-25 09:20] LABS: Hemoglobin A1C 7.1 % (4.0-6.0)
[2024-07-25 09:32] LABS: Vitamin B12 479 pg/mL (239-931)
[2024-07-25 09:45] VITALS: BP 115/71; BP 135/72; BP 150/80
--- NOTE | 2024-07-25 10:06 | PC.NURSE ---
Student nurse, Shankar Paul will be providing care under my supervision.
[2024-07-25] MEDS: MECLIZINE 25MG TABLET 25 MG PO (10:28)
--- NOTE | 2024-07-25 10:33 | SW/DCPLANNER ---
I spoke w/ this patient regarding discharge planning. PT/OT evaluated patient and recommended outpatient PT services. Patient is agreeable to outpatient therapy at [facility]. Patient stated no DME needed at this time. I have asked Hotel Security Officer (Kathy) to schedule outpatient services. Discharge date is unknown at this time. I will continue to follow up.
--- NOTE | 2024-07-25 11:47 | EXP.DC.SUM ---
General Admission date:: 07/24/24 HPI HPI HPI: Ms. Zaragoza is a 73-year-old female who has had worsening dizziness over the past week. States it got worse last night. Feels like the room is spinning, even when she is laying still. Worse when turning head to the right. She has previously had episode of vertigo the last 1 to 2 days and then resolved. This episode has persisted however and is not getting better. She reports nausea with with her dizziness. Denies any known trauma, falls, loss of consciousness or change in mentation. Denies any headache, numbness, tingling or weakness. No chest pain or shortness of breath. No recent illness that she knows of. On blood pressure medication, diuretics, and diabetes meds. Symptoms were bad enough that she called EMS who brought her to the ER for evaluation. On workup, blood sugar is mildly elevated. Appears slightly dry with an elevated BUN to creatinine ratio. CT of her head does not show any acute strokes. Attempts were made to calm her vertigo with meclizine and benzodiazepines. Patient remained dizzy and nauseous. Unable to ambulate independently without feeling like she was going to fall over. Medicine was consulted for admission and further management. On evaluation after arriving to the floor, patient is comfortable lying in bed. She does not want to move due to dizziness. No active nausea or vomiting. Hemodynamically stable. On room air. Afebrile. Alert and oriented x 4. No nystagmus on exam. Hospital Course Hospital Course Hospital Course: Justine Zaragoza is a 73-year-old female who presents with dizziness. Concern for vertigo that does not respond to treatment in the ED. Unable to discharge home. Discussed case with ER physician, request admission for further workup including MRI and management of vertigo. #Vertigo #Mastoiditis - CT head shows chronic periventricular changes but no acute stroke. MRI obtained showing meningioma and mastoiditis. ? Otherwise, CBC, CMP, troponins, orthostatic vitals unremarkable. ? TSH low at 0.02. Free T4 normal. Advised patient to discontinue biotin 10,000 mcg as this can interfere with TSH. ? Patient's symptoms clinically improved with meclizine, IV antibiotics. ? Discharged with cefdinir (allergic to penicillins) for 9 more days, and meclizine 25 mg 3 times daily as needed. ? Also referred to PT for vestibular treatment. ? Referred to ENT for further evaluation of vertigo/mastoiditis, and PCP for further management of meningioma. #Type 2 diabetes ? Hemoglobin A1c 7.1%. ? Continue home Toujeo 50 units nightly, Ozempic. #Hypertension ? Hold home amlodipine, lisinopril, eplerenone due to normal pressures and dizziness. Total time spent on discharge: 32 minutes on chart review, counseling, documentation, and direct care with patient. Exam Data for Last 24 hours Vital signs and Labs for Last 24 Hours: Temp Pulse Resp BP Pulse Ox O2 Del Method 97.9 F 56 L 18 135/72 91 L Room Air 07/25/24 08:00 07/25/24 08:00 07/25/24 08:00 07/25/24 09:45 07/25/24 08:00 07/25/24 11:00 Laboratory Results - last 24 hr 07/24/24 12:08: Urine Color Yellow, Urine Appearance Clear, Urine pH 7.0, Ur Specific [place] 1.015, Urine Protein Negative, Urine Glucose (UA) 100, Urine Ketones Negative, Urine Blood Negative, Urine Nitrate Negative, Urine Bilirubin Negative, Urine Urobilinogen 0.2, Ur Leukocyte Esterase Negative, Urine RBC None, Urine WBC None, Ur Squamous Epith Cells Occasional, Urine Bacteria Trace 07/24/24 17:14: POC Glucose 100 07/24/24 20:06: POC Glucose 241 H 07/25/24 05:05: WBC 5.7 D, RBC 3.91 L, Hgb 11.9 L, Hct 37.2, MCV 95.1, MCH 30.4, MCHC 32.0, RDW 14.0, Plt Count 264, MPV 10.5 H, Neut % (Auto) 58.4, Lymph % (Auto) 30.5, Smyth % (Auto) 7.0, Eos % (Auto) 3.2, Baso % (Auto) 0.5, Neut # (Auto) 3.3, Lymph # (Auto) 1.7, Smyth # (Auto) 0.4, Eos # (Auto) 0.2, Baso # (Auto) 0.0, Sodium 139, Potassium 4.2, Chloride 107, Carbon Dioxide 31 H, Anion Gap 5.2, BUN 28 H, Creatinine 1.50 H D, Estimated Creat Clear 50, Estimated GFR 34 L, Est GFR ( Amer) 41 L D, Glucose 108 H D, Hemoglobin A1c 7.1 H, Calcium 9.3, Magnesium 2.4 H, Total Bilirubin 0.4, AST 26, ALT 20 D, Alkaline Phosphatase 35 L, Total Protein 6.0 L, Albumin 3.6 D, Globulin 2.4, Albumin/Globulin Ratio 1.5, Vitamin B12 479, TSH 0.02 L, Free T4 0.91 07/25/24 05:15: POC Glucose 108 I & O for Last 24 hours: Intake & Output 07/22/24 07/23/24 07/24/24 07/25/24 23:59 23:59 23:59 23:59 Intake Total 1720 / 1920 560 / 560 Output Total 0 / 0 0 / 0 Balance 1720 / 1920 560 / 560 Weight 92.646 kg 92.986 kg Constitutional Constitutional: no acute distress and obese *Routine HEENT Exam Head: Present normocephalic Eye: Present EOMI and PERRL ENT: Present mucous membranes moist *Routine Neck Exam Neck: Present supple; Absent lymphadenopathy *Routine Respiratory Exam Respiratory: Present CTA bilaterally *Routine Cardiovascular Exam Cardiovascular: Present RRR *Routine Abdominal Exam Abdominal: Present soft and normoactive bowel sounds; Absent tenderness *Routine Extremities Exam Extremities: Absent cyanosis, clubbing or edema *Routine Skin Exam Skin: Present warm; Absent rash *Routine Neurological Exam Neurological: Present alert and oriented X3 Results Data Completed and Pending Labs on day of discharge: Labs from last 24 hours 07/25/24 07/25/24 07/24/24 05:15 05:05 20:06 WBC 5.7 D RBC 3.91 L Hgb 11.9 L Hct 37.2 MCV 95.1 MCH 30.4 MCHC 32.0 RDW 14.0 Plt Count 264 MPV 10.5 H Neut % (Auto) 58.4 Lymph % (Auto) 30.5 Smyth % (Auto) 7.0 Eos % (Auto) 3.2 Baso % (Auto) 0.5 Neut # (Auto) 3.3 Lymph # (Auto) 1.7 Smyth # (Auto) 0.4 Eos # (Auto) 0.2 Baso # (Auto) 0.0 Sodium 139 Potassium 4.2 Chloride 107 Carbon Dioxide 31 H Anion Gap 5.2 BUN 28 H Creatinine 1.50 H D Estimated Creat Clear 50 Estimated GFR 34 L Est GFR ( Amer) 41 L D Glucose 108 H D POC Glucose 108 241 H Hemoglobin A1c 7.1 H Calcium 9.3 Magnesium 2.4 H Total Bilirubin 0.4 AST 26 ALT 20 D Alkaline Phosphatase 35 L Total Protein 6.0 L Albumin 3.6 D Globulin 2.4 Albumin/Globulin Ratio 1.5 Vitamin B12 479 TSH 0.02 L Free T4 0.91 Urine Color Urine Appearance Urine pH Ur Specific [place] Urine Protein Urine Glucose (UA) Urine Ketones Urine Blood Urine Nitrate Urine Bilirubin Urine Urobilinogen Ur Leukocyte Esterase Urine RBC Urine WBC Ur Squamous Epith Cells Urine Bacteria 07/24/24 07/24/24 17:14 12:08 WBC RBC Hgb Hct MCV MCH MCHC RDW Plt Count MPV Neut % (Auto) Lymph % (Auto) Smyth % (Auto) Eos % (Auto) Baso % (Auto) Neut # (Auto) Lymph # (Auto) Smyth # (Auto) Eos # (Auto) Baso # (Auto) Sodium Potassium Chloride Carbon Dioxide Anion Gap BUN Creatinine Estimated Creat Clear Estimated GFR Est GFR ( Amer) Glucose POC Glucose 100 Hemoglobin A1c Calcium Magnesium Total Bilirubin AST ALT Alkaline Phosphatase Total Protein Albumin Globulin Albumin/Globulin Ratio Vitamin B12 TSH Free T4 Urine Color Yellow Urine Appearance Clear Urine pH 7.0 Ur Specific [place] 1.015 Urine Protein Negative Urine Glucose (UA) 100 Urine Ketones Negative Urine Blood Negative Urine Nitrate Negative Urine Bilirubin Negative Urine Urobilinogen 0.2 Ur Leukocyte Esterase Negative Urine RBC None Urine WBC None Ur Squamous Epith Cells Occasional Urine Bacteria Trace DS: Diagnosis Discharge Diagnosis (1) Vertigo: Status: Acute Code(s): R42 - Dizziness and giddiness (2) Unspecified mastoiditis, bilateral: Status: Acute Code(s): H70.93 - Unspecified mastoiditis, bilateral (3) Meningioma: Status: Acute Code(s): D32.9 - Benign neoplasm of meninges, unspecified (4) Nausea & vomiting: Status: Acute Code(s): R11.2 - Nausea with vomiting, unspecified (5) HTN (hypertension): Status: Chronic Code(s): I10 - Essential (primary) hypertension (6) Diabetes: Status: Chronic Code(s): E11.9 - Type 2 diabetes mellitus without complications (7) Obesity (BMI 30.0-34.9): Status: Chronic Code(s): E66.811 - Obesity, class 1 Meds Home Medications and Allergies Home Medications ?Medication ?Instructions ?Recorded ?Confirmed ?Type amlodipine 5 mg tablet 5 mg PO HS 07/24/24 07/31/24 History aspirin 81 mg chewable tablet 81 mg PO HS 07/24/24 07/31/24 History atorvastatin 10 mg tablet 10 mg PO HS 07/24/24 07/31/24 History biotin 10,000 mcg capsule 10,000 mcg PO HS 07/24/24 07/31/24 History cholecalciferol (vitamin D3) 25 1,000 unit PO HS 07/24/24 07/31/24 History mcg (1,000 unit) tablet (Vitamin D3) eplerenone 25 mg tablet 25 mg PO DAILY 07/24/24 07/31/24 History fenofibrate nanocrystallized 145 145 mg PO HS 07/24/24 07/31/24 History mg tablet insulin glargine U-300 conc 300 50 unit SQ HS 07/24/24 07/31/24 History unit/mL (3 mL) subcutaneous pen (Toujeo Max U-300 SoloStar) lisinopril 40 mg tablet 40 mg PO HS 07/24/24 07/31/24 History semaglutide 1 mg/dose (2 mg/1.5 1 mg SQ WEEKLY 07/24/24 07/31/24 History mL) subcutaneous pen injector cefdinir 300 mg capsule 300 mg PO BID 9 days #18 caps 07/25/24 07/31/24 Rx meclizine 25 mg tablet 25 mg PO TIDP PRN Vertigo 30 days 07/25/24 07/31/24 Rx #60 tabs azelastine 137 mcg (0.1 %) nasal 2 spray intranasal BID #30 mL 07/31/24 07/31/24 Rx spray New Prescriptions to Start Prescriptions: cefagatair Cody Walden meclizine Cody Walden Allergies Allergy/AdvReac Type Severity Reaction Status Date / Time Penicillins Allergy Rash Verified 07/31/24 14:49 Discharge Plan Disposition Patient Disposition: Home, Self-Care Condition: Fair Follow up Plan Follow up with: Miroslava Zavala PA [Primary Care Provider] - 07/27/24 3:00 pm Trudy Izaguirre APRN [Nurse Practitioner] - 07/31/24 2:40 pm (Mastoiditis, vertigo) Bradford Carr PT [Physical Therapist] - 08/07/24 11:00 am Prescriptions/Medication Reconciliation: New meclizine 25 mg Tablet 25 mg PO TIDP PRN (Reason: Vertigo) 30 Days Qty: 60 0RF cefdinir 300 mg capsule 300 mg PO BID 9 Days Qty: 18 0RF Continued atorvastatin 10 mg Tablet 10 mg PO HS aspirin 81 mg Tablet,Chewable 81 mg PO HS fenofibrate nanocrystallized 145 mg Tablet 145 mg PO HS cholecalciferol (vitamin D3) [Vitamin D3] 25 mcg (1,000 unit) Tablet 1,000 unit PO HS insulin glargine U-300 conc [Toujeo Max U-300 SoloStar] 300 unit/mL (3 mL) Insulin Pen 50 unit SQ HS semaglutide 1 mg/dose (2 mg/1.5 mL) Pen Injector 1 mg SQ WEEKLY Held amlodipine 5 mg Tablet 5 mg PO HS Hold Instructions: Resume on 08/08/24. Your blood pressures have been low normal, please hold this medication until you follow up with PCP/expansion envelope maker hand. biotin 10,000 mcg Capsule 10,000 mcg PO HS Hold Instructions: Resume on 08/15/24. Biotin can cause low thyroid levels which seems the case with you thyroid levels. lisinopril 40 mg Tablet 40 mg PO HS Hold Instructions: Resume on 08/08/24. Your blood pressures have been low normal, please hold this medication until you follow up with PCP/expansion envelope maker hand. eplerenone 25 mg Tablet 25 mg PO DAILY Hold Instructions: Resume on 08/08/24. Your blood pressures have been low normal, please hold this medication until you follow up with PCP/expansion envelope maker hand. No Action azelastine 137 mcg (0.1 %) spray,non-aerosol 2 spray intranasal BID Qty: 30 2RF Rx Instructions: administer into each nostril Other Ambulatory Orders: Rehab Eval, OP (Routine) Timeframe: 2 Weeks Facility: [facility] - Location: Physical Therapy Ordered By: Cody Walden Problem Reconciliation Problems Reviewed?: Yes Patient Discharge Instructions Patient Instructions: Vertigo (Alternative Therapy), Vertigo Print Language: [place]an Providers Primary Care Provider: Miroslava Zavala Admit Provider: Chuy Nick Attending Provider: Chuy Nick
[2024-07-25 12:50] LABS: POC Glucose,Bedside 139 (70-110)
[2024-07-25 13:58] VITALS: BP 124/74; BP 128/76; BP 131/77
--- NOTE | 2024-07-26 11:03 | SW/DCPLANNER ---
Spoke with patient on the phone. Patient stated that she is doing very well. Patient stated that she was able to get her new medicine. Patient stated that she is aware of her upcoming appointments. Patient stated that she has no concerns or questions at this time. Sammy Erazo
== END 2024-07-25 15:40 | disposition home or self-care (01) ==
LOC: ER 08:00 → 2ND 08:05
PROVIDERS: Emergency Medicine; Student in an Organized Health Care Education/Training Program; Admitting Provider Internal Medicine Adolescent Medicine; Emergency Provider Emergency Medicine; PCP Physician Assistant; Visit Provider Internal Medicine Adolescent Medicine
DX: I12.9 Hypertensive chronic kidney disease with stage 1 through stage 4 chronic kidney disease, or unspecified chronic kidney disease (principal); E11.22 Type 2 diabetes mellitus with diabetic chronic kidney disease; R00.1 Bradycardia, unspecified; R42 Dizziness and giddiness; H70.93 Unspecified mastoiditis, bilateral; D32.9 Benign neoplasm of meninges, unspecified; R11.2 Nausea with vomiting, unspecified; E66.9 Obesity, unspecified; Z68.36 Body mass index [BMI] 36.0-36.9, adult; Z99.89 Dependence on other enabling machines and devices; Z82.3 Family history of stroke; Z83.3 Family history of diabetes mellitus; N18.9 Chronic kidney disease, unspecified; Z84.89 Family history of other specified conditions; Z79.82 Long term (current) use of aspirin; Z79.899 Other long term (current) drug therapy; Z79.4 Long term (current) use of insulin; Z79.85 Long-term (current) use of injectable non-insulin antidiabetic drugs; Z88.0 Allergy status to penicillin
CPT/HCPCS: 36415; 70450; 70496; 70498; 70553; 71045; 80053; 81001; 82607; 82803; 82962; 83036; 83735; 84439; 84443; 84484; 85025; 85610; 93005; 97110; 97163; 97166; 97530; 99285; A9576; G0378; J0696; J2060; J2543; J7120; Q9967

== ENCOUNTER 2024-08-07 14:49 | Outpatient (RCR) | payer MEDICARE, SELFPAY ==
--- NOTE | 2024-08-07 17:06 | HMH.PTOPEV ---
PT Outpatient Evaluation Rehab PT Outpatient Evaluation Start: 08/07/24 16:55 Freq: Status: Active Protocol: Document 08/07/24 16:55 PHORNE (Rec: 08/07/24 17:06 PHORNE [id number]) E-signed By Bradford Carr, PT Outpatient Therapy Subjective History Subjective History This is the initial PT eval for Justine Zaragoza, 73 yowf who presents with c/o vertigo x ~ 2 wks with sudden onset. She reports symptoms are provoked with turning her head to either side, with quick onset, and lasting 1-2 mins. She reports no nausea at this time, but mild symptoms in the past 2 weeks. She reports PMH of HTN controlled with medication, B hearing loss requiring hearing aids, chronic sinus issues with drainage, and she recently suffered a flu infection. That's the first time I've ever had the flu. Chief Complaint Other Symptoms Relieved By Rest/Positioning Symptoms Aggravated By Physical Activity Prior Functional Limitations None Symptom Description Activity Dependent Balance Eval Hx of Falls Hx Falls No Gait/Posture Asssessment General Gait Observation No Deviations/Normal Nystagmus Nystagmus Presence Bilateral Nystagmus Description Geotropic,Latency - Immediate Oculomotor Gaze Oculomotor Gaze Nml: Vergence Smooth Pursuit Saccades VOR Cancellation Cover/Uncover Cross Cover Miscellaneous Dx PT Eval Objective Objective [employer]: Pt presented with positive up-beating nystagmus during R side [place]-Hallpike testing. [employer] to treat assumed PSC canalithiasis performed with good results. 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 Clinical Impression Consistent with Diagnosis Yes Short Term Goals Number of Weeks 2 Improve Self Care/Self Management Yes: Minimal episodes of vertigo with head turning activities. Medical Lab Director Goals Number of Weeks 4 Improve Self Care/Self Management Yes: No episodes of vertigo with head turning activities. Patient to be Ind w/ HEP Yes Outpatient Therapy Plan of Care Treatment Plan May Include Therapeutic Exercise Including Home Yes Exercise Program Manual Therapy Techniques Yes Neuromuscular Re-education Yes Therapeutic Activities to Return to Yes Previous Functional/Work Level ADL/Self Care Education Yes Eval/Re-Eval Yes Frequency Times per week 1 Duration Number of Weeks 4 Addendums This patient is a candidate for social No or vocational rehab? Patient/Guardian verbally acknowledges Yes understanding of treatment program and consents to further treatment? Patient/Guardian verbally acknowledges Yes understanding of diagnosis, prognosis and goals for treatment? Eval Complexity PT Charges 14826 - High Complexity Shoulder/Elbow Eval Shoulder Objective Measurements Elbow Objective Measurements PHYSICIAN CERTIFICATION: I certify the specified therapy services for Justine Zaragoza are required, authorized, and reviewed every 30 days.
== END 2024-08-07 23:59 | disposition home or self-care (01) ==
LOC: PT 14:49
PROVIDERS: PCP Physician Assistant; Visit Provider Student in an Organized Health Care Education/Training Program
DX: R42 Dizziness and giddiness (principal)
CPT/HCPCS: 97163